=== PATIENT | male | born 1990 | race Two or more races ===

== ENCOUNTER 2017-02-02 01:12 | Emergency (ER) | payer OTHER ==
[~2017-02-02] VITALS: Ht 177.8 cm; Wt 112.1 kg
[2017-02-02 01:14] VITALS: BP 149/85
[2017-02-02] MEDS ORDERED: HYDROCORTISONE CRM 0.025, 30GM RC ONE (02:00)
== END 2017-02-02 02:57 | disposition home or self-care (01) ==
LOC: ED 02:40
DX: K64.4 Residual hemorrhoidal skin tags (principal)
CPT/HCPCS: 99283

== ENCOUNTER 2017-02-03 16:32 | Emergency (ER) | payer OTHER ==
[~2017-02-03] VITALS: Ht 177.8 cm; Wt 110.5 kg
[2017-02-03 16:33] VITALS: BP 136/73
== END 2017-02-03 18:17 | disposition home or self-care (01) ==
LOC: ED 17:44
DX: K64.8 Other hemorrhoids (principal); K64.4 Residual hemorrhoidal skin tags; K64.5 Perianal venous thrombosis
CPT/HCPCS: 99281; 99283